=== PATIENT | male | born 1975 | race African-American/Black ===

== ENCOUNTER 2016-07-03 11:10 | Inpatient (IN) | payer OTHER ==
[~2016-07-03] VITALS: Ht 172.7 cm; Wt 114.3 kg
[2016-07-03] VITALS (7 sets, daily range): BP systolic 156–211; BP diastolic 83–141
--- NOTE | ~2016-07-03 | HC ---
[facility] [address] [place] [address] CONSULTATION Name: RAMESH PEDRAZA Room #: 454-P [facility] IN M.R.#: [id number] Admission: 07/03/16 Attend Phys: Elma Craig MD Discharge: 07/05/16 Date of : 79 Report #: [id number] THIS REPORT FOR: //name// CC: ELIA physician/PCP Elma Craig HISTORY OF PRESENT ILLNESS: This 40-year-old -[place] male presented to the Emergency Room complaining of dizziness. The patient stated the dizziness started at least 24 hours previously while asleep. He also had a significant headache. He took some ibuprofen and Norvasc he had had in the past without any improvement. He then noticed significant weakness and tingling in his right leg and right arm and felt weak. This caused him to have balance issues and was actually stumbling a little bit at night. He states that he was veering off to one side consistently to the right. He did have a hemorrhagic bleed at age 21 and had been on antihypertensive medicines until approximately 1-2 years ago when he thought it was causing him to gain weight and increase his appetite, so he stopped. He denies any fever, chills or night sweats, but he did have nausea and vomiting during these episodes. No syncope or near syncope. No chest pain, pressure, tightness or heaviness and prior to this episode, he had been doing fairly well. PAST MEDICAL HISTORY: 1. Hypertension with prior hemorrhagic CVA. 2. Elevated BMI. ALLERGIES: CONTRAST DYE. PAST SURGICAL HISTORY: Significant for kidney stones. MEDICATIONS: At home are naproxen p.r.n. Continue on naproxen p.r.n., had been on Colace and Flexeril in the past. SOCIAL HISTORY: The patient consumes alcohol socially. Does not smoke. Does not follow ____ dietary restriction or exercise regimen. REVIEW OF SYSTEMS: ____ comorbid state. The 10-point review of system is negative. LABORATORY DATA: Noted and reviewed in the chart. PHYSICAL EXAMINATION: VITAL SIGNS: Demonstrates an initial blood pressure of 211/141 with temperature 36, pulse 103, and respirations 16. Currently, his blood pressure is 150-160 systolic. GENERAL: Well-developed, well-nourished -[place] male, resting calmly in no acute distress. ____. [facility] [address] [place] [address] [facility] #: [facility]-P [facility] IN M.R.#: [id number] Admission: 07/03/16 Attend Phys: Elma Craig MD Discharge: 07/05/16 Date of : 79 Report #: [id number] Electrocardiogram, normal sinus rhythm, LVH, nonspecific ST-T wave changes with repolarization abnormalities noted. BUN and creatinine are 12 and 1.1 with a potassium of 4.0. H and H are 16.4 and 48.9. RADIOLOGIC: CT scan failed to demonstrate any acute changes. IMPRESSION: 1. Hypertensive crisis. I discussed at length the need for hypertensive control. We discussed options of dietary as well as other nonpharmacologic treatment of hypertension. I am going to review his medications and see what he is on and optimize his regimen. We want to make sure that we can bring that under control, but not into the normal range because he has probably been in the 150s-160s. We took him down to his normal blood pressures at this juncture. He may not feel well and stop his medications again. 2. Prior cerebrovascular accident, stable without any recurrent symptoms. 3. Transient ischemic attack, clearly symptoms compatible with TIAs and may have been secondary to his hypertensive crisis. I discussed this with him and he voiced his understanding and significant concern. <ELECTRONICALLY SIGNED> By: Alban Sheffield MD 07/05/16 1625 1920 0216 Alban Sheffield MD /nt
--- NOTE | ~2016-07-03 | D ---
[facility] [address] [address] DISCHARGE SUMMARY Name: RAMESH PEDRAZA Room #: 454-P ADM IN M.R.#: [id number] Admission: 07/03/16 Attend Phys: Elma Craig MD Discharge: Date of : 79 Report #: [id number] THIS REPORT FOR: //name// CC: ELIA physician/PCP Elma Craig DATE OF SERVICE: 07/05/2016 HISTORY HISTORY OF PRESENT ILLNESS: The patient is a 40-year-old man with history of noncompliance and out of control hypertension, who presented to the hospital with hypertensive urgency. His blood pressure was 211/141. Please refer to admission H and P for details. In brief, the patient had dizziness and headache. HOSPITALIZATION COURSE: The patient was hospitalized at [facility]. His evaluation was negative for end organ damage. CT scan of the brain was negative. Blood work was unremarkable, including kidney function. The patient was started on appropriate treatment. After lowering blood pressure, his condition improved significantly, and he remained completely asymptomatic. The patient was seen and evaluated by manager women. He was treated with Norvasc, labetalol and lisinopril. However, he reported side effect on Norvasc, headache and some nausea. Symptoms resolved after this was changed to nifedipine. Labetalol was discontinued. Currently, the patient's blood pressure has been 160s/90s. He is completely asymptomatic. The patient will be discharged home today with close outpatient followup. DISCHARGE DIAGNOSES: 1. Hypertensive urgency, resolved. 2. Noncompliance. 3. Chronic sinusitis. DISCHARGE MEDICATIONS: Lisinopril 40 mg a day, nifedipine 20 mg p.o. t.i.d. FOLLOWUP PLAN: Follow up with the PCP and manager women in 1 week. By: 1450 [id number] Elma Craig MD /nt
--- NOTE | ~2016-07-03 | EKG ---
[address] [place] [address] ELECTROCARDIOGRAM REPORT Name: RAMESH PEDRAZA Room #: 454-P ADM IN M.R.#: [id number] Admission: 07/03/16 Attend Phys: Alina Kimbrough MD Discharge: Date of : 79 Report #: [id number] THIS REPORT FOR: //name// [facility] ED Test Date: 2016-07-03 Test Time: 11:50:48 Pat Name: RAMESH PEDRAZA Department: Room: [facility] Gender: M [address] Stenographer: MZOOK : 1975 Requested By: Yelena Barclay Order Number: [id number] MD: Porfirio Soriano Measurements Intervals [place] Rate: 80 P: 18 IA: 160 QRS: -25 QRSD: 103 T: -51 QT: 413 QTc: 477 Interpretive Statements Sinus rhythm Left ventricular hypertrophy T wave abnormality, inferior and lateral leads No previous ECG available for comparison Electronically Signed On 07-04-2016 12:49:09 CDT by Porfirio Soriano [email or web address] <ELECTRONICALLY SIGNED> By: Porfirio Soriano MD, [facility] 07/04/16 1249 1150 1150 Porfirio Soriano MD, FACC /EPI
[~2016-07-03 11:10] MED LIST: COLACE100 MG PO; CYCLOBENZAPRINE5 MG PO; NAPROSYN500 MG PO; TRAMADOL 50 MG50 MG PO
[2016-07-03 11:32] LABS: ABSOLUTE NEUTROPHILS 5.4 thou/uL (1.4-8.2); BASOPHILS 1.2 % (0.0-2.0); EOSINOPHILS 1.2 % (0.0-3.0); HEMATOCRIT 48.9 % (42.0-52.0); HEMOGLOBIN 16.4 gm/dL (14.0-18.0); LYMPHOCYTES 38.7 % (24.0-44.0); MCH 27.2 pg (26.0-34.0); MCHC 33.6 g/dL (28.0-37.0); MCV 80.9 fL (80.0-100.0); MONOCYTES 10.6 % (1.0-8.0); PLATELET COUNT 328 thou/uL (150-400); POLYS 48.3 % (36.0-66.0); RBC 6.04 mil/uL (4.50-6.00); RDW 14.1 % (10.5-14.5); WBC 11.1 thou/uL (4.0-11.0)
[2016-07-03 11:34] LABS: MANUAL DIFF NO
[2016-07-03 11:38] LABS: CALCIUM 9.3 mg/dL (8.5-10.1); CREATININE 1.1 mg/dL (0.7-1.3)
[2016-07-04] VITALS (7 sets, daily range): BP systolic 156–175; BP diastolic 66–108
[2016-07-04 05:02] LABS: ANION GAP 11 mmol/L (7-16); BUN 14 mg/dL (7-18); CHLORIDE 103 mmol/L (98-107); CHOLESTEROL 221 mg/dL (<200); CO2 27 mmol/L (21-32); CREATININE 1.2 mg/dL (0.7-1.3); GLUCOSE 111 mg/dL (74-106); HDL CHOLESTEROL 41 mg/dL (>40); LDL CHOLESTEROL 127 mg/dL (<100); POTASSIUM 3.5 mmol/L (3.5-5.1); SERUM ASSESSMENT Clear; SODIUM 141 mmol/L (136-145); TC:HDL 5.4 Ratio (Not establshd); TRIGLYCERIDE 268 mg/dL (<150); VLDL 54 mg/dL (<40)
[2016-07-05 05:15] VITALS: BP 160/105
[2016-07-05 07:16] VITALS: BP 157/97
[2016-07-05 11:10] VITALS: BP 156/107
[2016-07-05] MEDS ORDERED: ASPIRIN EC325 M1 PO (14:53)
[2016-07-05] MEDS ORDERED: NIFEDIPINE10 MG PO (14:53)
[2016-07-05] MEDS ORDERED: LISINOPRIL40 MG PO (14:53)
[2016-07-05 15:15] VITALS: BP 156/107
[2016-07-05 15:40] VITALS: BP 156/107
== END 2016-07-05 15:32 | disposition home or self-care (01) | DRG 305 ==
LOC: ER 11:10 → EROBS 12:19 → 4W 12:19
PROVIDERS: Emergency Medicine; Internal Medicine Endocrinology, Diabetes & Metabolism
DX: I16.0 Hypertensive urgency (principal); G45.9 Transient cerebral ischemic attack, unspecified; I10 Essential (primary) hypertension; R51 Headache; J32.9 Chronic sinusitis, unspecified; F12.90 Cannabis use, unspecified, uncomplicated; Z91.041 Radiographic dye allergy status; Z91.14 Patient's other noncompliance with medication regimen; Z79.899 Other long term (current) drug therapy; Z86.73 Personal history of transient ischemic attack (TIA), and cerebral infarction without residual deficits; Z87.442 Personal history of urinary calculi; Z82.49 Family history of ischemic heart disease and other diseases of the circulatory system
CPT/HCPCS: 10047